=== PATIENT | male | born 1965 | race Caucasian/White ===

== ENCOUNTER 2023-08-29 15:51 | Inpatient (IN) | payer OTHER ==
[2023-08-29] MEDS ORDERED: diazePAM CARPU-JECT 10 MG/2 ML DISP.SYRIN ONE (16:38)
[2023-08-29] MEDS ORDERED: dilTIAZem HCL 125 MG/25 ML - 25 ML VIAL ONE (16:39)
[2023-08-29] MEDS: dilTIAZem HCL 50 MG/10 ML - 10 ML VIAL IVPUSH ONE ×2 (16:58→17:10)
[2023-08-29] MEDS: diazePAM CARPU-JECT 10 MG/2 ML DISP.SYRIN IVPUSH ONE ×2 (16:59→17:47)
[2023-08-29] MEDS: SODIUM CHLORIDE 500 ML IV STA (16:59)
[2023-08-29] MEDS ORDERED: METOPROLOL TARTRATE 5 MG/5 ML VIAL ONE (17:16)
[2023-08-29 17:23] LABS: POTASSIUM 3.7 mmol/L (3.5-5.1)
[2023-08-29 17:25] LABS: CALCIUM 10.3 mg/dL (8.5-10.1)
[2023-08-29 17:26] LABS: BLOOD UREA NITROGEN 8.4 mg/dL (7-18); MAGNESIUM 1.8 mg/dL (1.8-2.4)
[2023-08-29 17:29] LABS: CREATININE 1.3 mg/dL (0.55-1.3)
[2023-08-29 17:30] LABS: TOT PROT 9.4 g/dl (6.4-8.2)
[2023-08-29 17:31] LABS: BILIRUBIN,TOTAL 4.8 mg/dL (0.2-1)
[2023-08-29] MEDS: METOPROLOL TARTRATE 5 MG/5 ML VIAL IVPUSH ONE ×2 (17:47→22:21)
[2023-08-29] MEDS ORDERED: AMIODARONE HCL 150 MG/3 ML VIAL ONE (17:49)
[2023-08-29 19:24] LABS: BASO % 0.5 % (0-2.0); EOS % 0.8 % (0-4.5); HEMATOCRIT 39.3 % (35.4-49); HEMOGLOBIN 13.6 GM/dL (11.7-16.9); LYMPH % 16.8 % (8-40); MCH 31.9 pg (25.7-33.7); MCHC 34.5 g/dl (32.0-35.9); MEAN CELL VOLUME 92.2 fl (80-96); MEAN PLT VOLUME 7.3 fl (7.5-11.1); MONO % 7.5 % (3.8-10.2); NEUT % 74.4 % (42.8-82.8); PLATELET COUNT 103 10^3/uL (134-434); RBC 4.26 M/mm3 (4.00-5.60); RDW 15.2 % (11.9-15.9); WHITE BLOOD COUNT 6.5 K/mm3 (4.0-10.0)
[2023-08-29] MEDS: SODIUM CHLORIDE 1,500 ML IV STA (19:34)
[2023-08-29] MEDS ORDERED: METOPROLOL TARTRATE 25 MG TABLET (FP) ONE ×2 (19:43→22:18)
[2023-08-29 19:45] LABS: VENOUS BASE EXCESS -10.7 mmol/L (-2-2); VENOUS O2 SATURATION 52.3 % (70-80); VENOUS PCO2 30.7 mmHg (38-52); VENOUS PH 7.289 (7.310-7.410)
[2023-08-29] MEDS: METOPROLOL TARTRATE 25 MG TABLET (FP) PO ONE (19:57)
[2023-08-29] MEDS: FOLIC ACID INJECTION - 1 MG, THIAMINE HCL 100 MG, MULTIVIT INJECTION ADULT 10 ML in SOD... IVPB ONE (19:57)
[2023-08-29] MEDS: METOPROLOL TARTRATE 25 MG TABLET (FP) PO SCH (22:20)
[2023-08-29] MEDS: AMIODARONE HCL 150 MG/3 ML VIAL IVPUSH ONE (22:21)
[2023-08-29] MEDS ORDERED: LORazepam 1 MG TABLET PO PRN (23:07)
[2023-08-30] MEDS ORDERED: LORazepam 1 MG TABLET ONE ×3 (02:02→16:15)
[2023-08-30] MEDS: SODIUM CHLORIDE 1,000 ML IV SCH (02:06)
[2023-08-30] MEDS: LORazepam 1 MG TABLET PO SCH (02:06)
[2023-08-30] MEDS ORDERED: METOPROLOL TARTRATE 25 MG TABLET (FP) ONE ×2 (06:03→13:15)
[2023-08-30 06:43] LABS: BASO % 0.4 % (0-2.0); HEMATOCRIT 36.7 % (35.4-49); HEMOGLOBIN 12.4 GM/dL (11.7-16.9); LYMPH % 15.3 % (8-40); MCH 31.5 pg (25.7-33.7); MCHC 33.8 g/dl (32.0-35.9); MEAN CELL VOLUME 93.1 fl (80-96); MEAN PLT VOLUME 7.8 fl (7.5-11.1); MONO % 8.6 % (3.8-10.2); NEUT % 73.7 % (42.8-82.8); PLATELET COUNT 101 10^3/uL (134-434); RBC 3.94 M/mm3 (4.00-5.60); RDW 15.5 % (11.9-15.9); WHITE BLOOD COUNT 6.3 K/mm3 (4.0-10.0)
[2023-08-30 07:02] LABS: CHLORIDE 96 mmol/L (98-107); SODIUM 130 mmol/L (136-145)
[2023-08-30 07:05] LABS: CO2 17 mmol/L (21-32); GLUCOSE,RANDOM 105 mg/dL (74-106); MAGNESIUM 1.8 mg/dL (1.8-2.4)
[2023-08-30 07:07] LABS: CHOLESTEROL 153 mg/dL (50-200); LDL CHOLESTEROL (ONLY SJRH) 66 mg/dL (5-100); SGPT/ALT 91 U/L (13-61)
[2023-08-30 07:08] LABS: SGOT/AST 215 U/L (15-37)
[2023-08-30 07:09] LABS: BILIRUBIN,TOTAL 4.4 mg/dL (0.2-1)
[2023-08-30 07:10] LABS: HDL CHOLESTEROL 83 mg/dL (40-60)
[2023-08-30 07:16] LABS: ALK PHOS 112 U/L (45-117); ANION GAP 18 mmol/L (4-13); CALCIUM 8.5 mg/dL (8.5-10.1); CREATININE 1.2 mg/dL (0.55-1.3); PHOSPHOROUS 1.1 mg/dL (2.5-4.9); POTASSIUM 2.9 mmol/L (3.5-5.1)
[2023-08-30] MEDS ORDERED: MAGNESIUM SULFATE IN WATER 2 GM/50 ML IVPB IVPB ONE (07:53)
[2023-08-30] MEDS ORDERED: POTASSIUM CHLORIDE ORAL LIQUID 20 MEQ/15 ML ONE (07:53)
[2023-08-30] MEDS ORDERED: KCL 10 MEQ IVPB 10 MEQ/100 ML INFUS.BAG IVPB ONE ×2 (07:53→08:49)
[2023-08-30 08:00] LABS: HIV INTERPRETATION NEGATIVE (NEGATIVE)
[2023-08-30] MEDS: KCL 10 MEQ IVPB 10 MEQ/100 ML INFUS.BAG IVPB SCH (08:22)
[2023-08-30] MEDS: POTASSIUM CHLORIDE ORAL LIQUID 20 MEQ/15 ML PO ONE (08:23)
[2023-08-30 08:31] LABS: INR 1.29 (0.83-1.09); PROTHROMBIN TIME (PATIENT) 14.9 SEC (9.7-13.0)
[2023-08-30] MEDS: MAGNESIUM 2GM/50ML STERILE WATER IVPB IVPB ONE (08:37)
[2023-08-30] MEDS: NICOTINE 14 MG/24 HOURS TOPICAL PATCH TD SCH (09:02)
[2023-08-30] MEDS: THIAMINE HCL 100 MG TABLET (FP) PO SCH (09:02)
[2023-08-30] MEDS: FOLIC ACID 1 MG TABLET (FP) PO SCH (09:02)
[2023-08-30] MEDS: POTASSIUM PHOSPHATE 15 MM in DEXTROSE 5%-WATER - 250 ML IVPB ONE (11:14)
[2023-08-30] MEDS ORDERED: LORazepam 0.5 MG TABLET ONE (11:27)
[2023-08-31] MEDS ORDERED: LORazepam 1 MG TABLET PO SCH (05:00)
[2023-08-31] MEDS: ASPIRIN 81 MG CHEWABLE TABLETS PO SCH (09:23)
[2023-08-31 09:49] LABS: HEMATOCRIT 39.4 % (35.4-49); HEMOGLOBIN 13.3 GM/dL (11.7-16.9); MCH 31.3 pg (25.7-33.7); MCHC 33.8 g/dl (32.0-35.9); MEAN CELL VOLUME 92.7 fl (80-96); PLATELET COUNT 98 10^3/uL (134-434); RBC 4.24 M/mm3 (4.00-5.60); WHITE BLOOD COUNT 9.4 K/mm3 (4.0-10.0)
[2023-08-31 10:25] LABS: CHLORIDE 103 mmol/L (98-107); SODIUM 135 mmol/L (136-145)
[2023-08-31 10:26] LABS: CO2 19 mmol/L (21-32)
[2023-08-31 10:27] LABS: BLOOD UREA NITROGEN 6.9 mg/dL (7-18); GLUCOSE,RANDOM 110 mg/dL (74-106); MAGNESIUM 2.1 mg/dL (1.8-2.4)
[2023-08-31 10:53] LABS: ANION GAP 13 mmol/L (4-13); PHOSPHOROUS 0.9 mg/dL (2.5-4.9); POTASSIUM 2.9 mmol/L (3.5-5.1)
[2023-08-31] MEDS: POTASSIUM CHLORIDE TABS 20 MEQ TABLET.ER (FP) PO ONE ×3 (11:10→22:56)
[2023-08-31] MEDS: KCL 10 MEQ IVPB 10 MEQ/100 ML INFUS.BAG IVPB SCH ×2 (11:11→21:57)
[2023-08-31] MEDS: SODIUM PHOSPHATE - 20 MM in SODIUM CHLORIDE 250 ML IVPB ONE (14:05)
[2023-08-31 14:19] LABS: POTASSIUM 3.2 mmol/L (3.5-5.1)
[2023-08-31 14:21] LABS: BLOOD UREA NITROGEN 6.8 mg/dL (7-18); CALCIUM 9.3 mg/dL (8.5-10.1)
[2023-08-31 14:24] LABS: CREATININE 1.1 mg/dL (0.55-1.3)
[2023-08-31 17:38] LABS: CHLORIDE 104 mmol/L (98-107); POTASSIUM 3.3 mmol/L (3.5-5.1); SODIUM 134 mmol/L (136-145)
[2023-08-31 17:40] LABS: ANION GAP 9 mmol/L (4-13); BLOOD UREA NITROGEN 6.2 mg/dL (7-18); CALCIUM 8.9 mg/dL (8.5-10.1); CO2 21 mmol/L (21-32); GLUCOSE,RANDOM 104 mg/dL (74-106)
[2023-08-31] MEDS ORDERED: POTASSIUM CHLORIDE TABS 20 MEQ TABLET.ER (FP) PO ONE (18:52)
[2023-08-31 19:13] LABS: MAGNESIUM 1.9 mg/dL (1.8-2.4)
[2023-08-31 19:21] LABS: PHOSPHOROUS 0.9 mg/dL (2.5-4.9)
[2023-08-31] MEDS: MAGNESIUM SULF 50% (8.12 MEQ/2 ML-1 GM VIAL) IVPB ONE (22:04)
[2023-08-31] MEDS: NAPH,MB-DB/K PH,MBDB POWDER PACKET PO SCH (22:57)
[2023-09-01] MEDS ORDERED: LORazepam 0.5 MG TABLET PO PRN
[2023-09-01] MEDS: SODIUM PHOSPHATE - 20 MM in SODIUM CHLORIDE 250 ML IVPB ONE (00:28)
[2023-09-01] MEDS: SODIUM PHOSPHATE - 30 MM in SODIUM CHLORIDE 250 ML IVPB ONE (00:34)
[2023-09-01 01:05] LABS: URINE APPEARANCE CLEAR; URINE BILIRUBIN NEGATIVE (NEGATIVE); URINE COLOR DK YELLOW; URINE GLUCOSE (UA) NEGATIVE (NEGATIVE); URINE KETONE TRACE (NEGATIVE); URINE LEUK ESTERASE NEGATIVE (NEGATIVE); URINE NITRITE NEGATIVE (NEGATIVE); URINE PROTEIN TRACE (NEGATIVE)
[2023-09-01] MEDS ORDERED: METOPROLOL TARTRATE 5 MG/5 ML VIAL IVPUSH PRN (01:15)
[2023-09-01] MEDS: METOPROLOL TARTRATE 5 MG/5 ML VIAL IVPUSH ONE (02:06)
[2023-09-01] MEDS: dilTIAZem HCL 25 MG/5 ML - 5 ML VIAL IVPUSH ONE ×2 (02:59→05:37)
[2023-09-01] MEDS: dilTIAZem HCL 50 MG/10 ML - 10 ML VIAL IVPUSH ONE (03:23)
[2023-09-01] MEDS ORDERED: LORazepam 0.5 MG TABLET PO SCH (05:00)
[2023-09-01 07:05] LABS: HEMATOCRIT 37.6 % (35.4-49); HEMOGLOBIN 12.9 GM/dL (11.7-16.9); MCHC 34.2 g/dl (32.0-35.9); MEAN CELL VOLUME 93.4 fl (80-96); MEAN PLT VOLUME 7.9 fl (7.5-11.1); PLATELET COUNT 101 10^3/uL (134-434); RBC 4.02 M/mm3 (4.00-5.60); RDW 15.1 % (11.9-15.9); WHITE BLOOD COUNT 7.6 K/mm3 (4.0-10.0)
[2023-09-01 07:16] LABS: POTASSIUM 3.5 mmol/L (3.5-5.1)
[2023-09-01 07:26] LABS: CALCIUM 8.5 mg/dL (8.5-10.1)
[2023-09-01 07:27] LABS: ALBUMIN 2.6 g/dl (3.4-5.0); BLOOD UREA NITROGEN 5.5 mg/dL (7-18); MAGNESIUM 1.9 mg/dL (1.8-2.4)
[2023-09-01 07:30] LABS: CREATININE 0.8 mg/dL (0.55-1.3); PHOSPHOROUS 2.8 mg/dL (2.5-4.9)
[2023-09-01 07:31] LABS: BILIRUBIN,TOTAL 3.7 mg/dL (0.2-1); TOT PROT 6.5 g/dl (6.4-8.2)
[2023-09-01] MEDS: THIAMINE HCL 100 MG TABLET (FP) PO SCH (22:41)
[2023-09-02] MEDS: LORazepam 0.5 MG TABLET PO ONE (05:11)
[2023-09-02 06:33] LABS: HEMATOCRIT 37.7 % (35.4-49); HEMOGLOBIN 12.8 GM/dL (11.7-16.9); MCH 31.9 pg (25.7-33.7); MEAN CELL VOLUME 93.8 fl (80-96); MEAN PLT VOLUME 7.9 fl (7.5-11.1); PLATELET COUNT 136 10^3/uL (134-434); RBC 4.02 M/mm3 (4.00-5.60); RDW 15.6 % (11.9-15.9); WHITE BLOOD COUNT 6.5 K/mm3 (4.0-10.0)
[2023-09-02 07:09] LABS: POTASSIUM 3.3 mmol/L (3.5-5.1)
[2023-09-02 07:11] LABS: ALBUMIN 2.7 g/dl (3.4-5.0)
[2023-09-02 07:12] LABS: CALCIUM 8.9 mg/dL (8.5-10.1)
[2023-09-02 07:13] LABS: MAGNESIUM 1.8 mg/dL (1.8-2.4)
[2023-09-02 07:16] LABS: CREATININE 0.9 mg/dL (0.55-1.3); PHOSPHOROUS 2.4 mg/dL (2.5-4.9)
[2023-09-02 07:17] LABS: BILIRUBIN,TOTAL 3.4 mg/dL (0.2-1); TOT PROT 6.6 g/dl (6.4-8.2)
[2023-09-02] MEDS ORDERED: LACTULOSE 20 GM/30 ML UDC (FOR ORAL USE ONLY) PO PRN (08:46)
[2023-09-02] MEDS: POTASSIUM CHLORIDE ORAL LIQUID 20 MEQ/15 ML PO ONE (10:58)
[2023-09-02] MEDS: LACTULOSE 20 GM/30 ML UDC (FOR ORAL USE ONLY) PO SCH (17:08)
[2023-09-02 18:01] VITALS: RESP 18
[2023-09-03 06:51] LABS: HEMATOCRIT 34.9 % (35.4-49); MCH 32.2 pg (25.7-33.7); MCHC 34.4 g/dl (32.0-35.9); MEAN CELL VOLUME 93.4 fl (80-96); MEAN PLT VOLUME 7.8 fl (7.5-11.1); PLATELET COUNT 145 10^3/uL (134-434); RBC 3.73 M/mm3 (4.00-5.60); RDW 15.2 % (11.9-15.9); WHITE BLOOD COUNT 5.4 K/mm3 (4.0-10.0)
[2023-09-03 07:32] LABS: ALBUMIN 2.6 g/dl (3.4-5.0); BLOOD UREA NITROGEN 4.6 mg/dL (7-18); CALCIUM 8.7 mg/dL (8.5-10.1); CREATININE 0.8 mg/dL (0.55-1.3); MAGNESIUM 1.7 mg/dL (1.8-2.4); PHOSPHOROUS 2.3 mg/dL (2.5-4.9); POTASSIUM 3.4 mmol/L (3.5-5.1); TOT PROT 6.6 g/dl (6.4-8.2)
[2023-09-03] MEDS: NAPH,MB-DB/K PH,MBDB POWDER PACKET PO ONE ×2 (08:06→15:06)
[2023-09-03] MEDS: MAGNESIUM 2GM/50ML STERILE WATER IVPB IVPB ONE (08:06)
[2023-09-03] MEDS: POTASSIUM CHLORIDE ORAL LIQUID 20 MEQ/15 ML PO SCH (09:42)
[2023-09-03 14:57] VITALS: BP 134/90; PULSE 92; TEMP 97.3
[2023-09-03] MEDS: POTASSIUM CHLORIDE ORAL LIQUID 20 MEQ/15 ML PO ONE (15:06)
[2023-09-04 20:53] VITALS: BMI 27.5
== END 2023-09-03 15:48 | disposition left against medical advice (07) | DRG 201 ==
LOC: JER 15:51 → JERBED 18:51 → J4W 08-30 21:04
PROVIDERS: ADMIT Internal Medicine; ATTEND Internal Medicine
DX: I48.92 Unspecified atrial flutter (principal); E87.20 Acidosis, unspecified; I24.89 Other forms of acute ischemic heart disease; B19.10 Unspecified viral hepatitis B without hepatic coma; E87.1 Hypo-osmolality and hyponatremia; D69.6 Thrombocytopenia, unspecified; E88.09 Other disorders of plasma-protein metabolism, not elsewhere classified; F10.239 Alcohol dependence with withdrawal, unspecified; I10 Essential (primary) hypertension; I25.10 Atherosclerotic heart disease of native coronary artery without angina pectoris; I44.30 Unspecified atrioventricular block; K70.30 Alcoholic cirrhosis of liver without ascites; K70.9 Alcoholic liver disease, unspecified; R07.9 Chest pain, unspecified; R79.89 Other specified abnormal findings of blood chemistry; I48.91 Unspecified atrial fibrillation; R18.8 Other ascites
CPT/HCPCS: 0241U-QW; 36415; 70450-TC; 71045-TC-FY; 74178-TC; 74183-TC; 76705-TC; 80048; 80053; 80061; 80307; 81003; 82010; 82105; 82140; 82248; 82272; 82550; 82728; 82803; 82962; 83090; 83516; 83540; 83550; 83735; 84100; 84443; 84484; 85025; 85027; 85610; 86038; 86704; 86705; 86708; 86709; 86803; 87340; 87389; 87517; 87522; 93005; 93010; 93306-TC; 99285-25; Q9967